=== PATIENT | male | born 1965 | race Caucasian/White ===

== ENCOUNTER 2019-02-11 02:10 | Emergency (ER) | payer BC, OTHER ==
[2019-02-11] MEDS ORDERED: Thiamine 100 MG in Sodium Chloride 0.9% 100 ML IV ONE (03:43)
--- NOTE | 2019-02-11 03:45 | EDM.PDOC ---
ED HPI GENERAL MEDICAL PROBLEM - General Chief Complaint: Syncope Stated Complaint: UNABLE TO PEE Time Seen by Provider: 02/11/19 03:39 Source of Information: Reports: Patient History Limitations: Reports: No Limitations - History of Present Illness INITIAL COMMENTS - FREE TEXT/NARRATIVE: Patient had a near syncopal episode [employer] while attempting to urinate. He felt the urge to urinate but was unable, subsequently beared down and had a BM instead. He then felt sweaty and lightheaded and collapsed to the ground. He did not lose consciousness and denies injuries. Patient complains of low abdominal cramping but this has significantly improved since receiving NS en route. He denies chest pain or SOB. - Related Data Allergies Allergy/AdvReac Type Severity Reaction Status Date / Time No Known Allergies Allergy Verified 02/11/19 02:39 Home Meds: Home Meds Lisinopril/Hydrochlorothiazide [Lisinopril-Hctz 10-12.5 mg Tab] 1 each PO DAILY 02/11/19 [History] Past Medical History Cardiovascular History: Reports: Hypertension. Denies: CAD Social & Family History - Tobacco Use Smoking Status *Q: Never Smoker - Alcohol Use Alcohol Use History: Yes Days Per Week of Alcohol Use: 7 Number of Drinks Per Day: 12 Total Drinks Per Week: 84 Alcohol Use Frequency: Daily - Recreational Drug Use Recreational Drug Use: No ED ROS GENERAL - Review of Systems Review Of Systems: ROS reveals no pertinent complaints other than HPI. Respiratory: Reports: Cough GI/Abdominal: Reports: Abdominal Pain (low) Musculoskeletal: Reports: Back Pain (low) - Physical Exam Exam: See Below Exam Limited By: No Limitations General Appearance: Alert, WD/WN, No Apparent Distress Eye Exam: Bilateral Eye: EOMI, PERRL Nose: Normal Inspection Throat/Mouth: No Airway Compromise Head Exam: Atraumatic, Normocephalic Neck: Normal Inspection, Full Range of Motion Respiratory/Chest: No Respiratory Distress, Lungs Clear, Normal Breath Sounds Cardiovascular: Regular Rate, Rhythm, No Murmur GI/Abdominal: Normal Bowel Sounds, Soft, No Mass, Tender (mild suprapubic) Neuro Exam (Abbreviated): Alert, Normal Cognition, No Motor/Sensory Deficits Extremities: Normal Range of Motion Psychiatric: Normal Affect, Normal Mood Skin Exam: Warm, Dry, Intact, Normal Color, No Rash EKG INTERPRETATION EKG Date: 02/11/19 Time: 02:24 Rhythm: NSR Rate (Beats/Min): 90 Ward: Normal P-Wave: Present QRS: RBBB ST-T: Normal QT: Normal Comparison: NA - No Prior EKG EKG Interpretation Comments: occasional PVC Course - Vital Signs Last Recorded V/S: Last Vital Signs Temp 36.7 C 02/11/19 02:10 Pulse 91 02/11/19 02:10 Resp 18 02/11/19 02:10 BP 128/75 02/11/19 02:10 Pulse Ox 95 02/11/19 02:10 - Orders/Labs/Meds Orders: Active Orders 24 hr Category Date Time Status EKG Documentation Completion [RC] ASDIRECTED Care 02/11/19 03:00 Active C-Spine [Cervical Spine wo Cont] [CT] Stat Exams 02/11/19 02:35 Taken CTA Abd Pelv w Cont [CT] Stat Exams 02/11/19 04:00 Taken Head wo Cont [CT] Stat Exams 02/11/19 02:35 Taken EKG 12 Lead [EK] Routine Ther 02/11/19 03:00 Ordered Labs: Laboratory Tests 02/11/19 02/11/19 02/11/19 Range/Units 02:45 02:45 02:45 WBC 7.5 (4.5-12.0) X10-3/uL RBC 4.56 (4.30-5.75) x10(6)uL Hgb 14.5 (13.5-17.8) g/dL Hct 42.4 (30.0-51.3) % MCV 93.0 (80-96) fL MCH 31.8 (27.7-33.6) pg MCHC 34.3 (32.2-35.4) g/dL RDW 12.6 (11.5-15.5) % Plt Count 207 (125-369) X10(3)uL MPV 9.3 (7.4-10.4) fL Neut % (Auto) 74.6 (46-82) % Lymph % (Auto) 14.2 (13-37) % [place] % (Auto) 8.6 (4-12) % Eos % (Auto) 2 (1.0-5.0) % Baso % (Auto) 1 (0-2) % Neut # (Auto) 5.6 (1.6-8.3) # Lymph # (Auto) 1.1 (0.6-5.0) # Bradley # (Auto) 0.6 (0.0-1.3) # Eos # (Auto) 0.2 (0.0-0.8) # Baso # (Auto) 0.0 (0.0-0.2) # Sodium 140 (135-145) mmol/L Potassium 3.3 L (3.5-5.3) mmol/L Chloride 101 (100-110) mmol/L Carbon Dioxide 26 (21-32) mmol/L BUN 15 (7-18) mg/dL Creatinine 1.3 (0.70-1.30) mg/dL Est Cr Clr Drug Dosing 64.20 mL/min Estimated GFR (MDRD) 57 L (>60) BUN/Creatinine Ratio 11.5 (9-20) Glucose 112 (80-116) mg/dL Calcium 8.5 L (8.6-10.2) mg/dL Magnesium 1.8 (1.8-2.5) mg/dL Total Bilirubin 0.7 (0.1-1.3) mg/dL AST 23 (5-25) IU/L ALT 36 (12-36) U/L Alkaline Phosphatase 64 (56-112) IU/L Troponin I (<0.017-0.056) ng/mL Total Protein 6.9 (6.0-8.0) g/dL Albumin 3.5 (3.5-5.2) g/dL Globulin 3.4 g/dL Albumin/Globulin Ratio 1.0 Urine Color (YELLOW) Urine Appearance (CLEAR) Urine pH (5.0-6.5) Ur Specific [place] (1.010-1.025) Urine Protein (NEGATIVE) mg/dL Urine Glucose (UA) (NORMAL) mg/dL Urine Ketones (NEGATIVE) mg/dL Urine Occult Blood (NEGATIVE) Urine Nitrite (NEGATIVE) Urine Bilirubin (NEGATIVE) Urine Urobilinogen (NEGATIVE) mg/dL Ur Leukocyte Esterase (NEGATIVE) Ethyl Alcohol 0.10 H (<0.03) % 02/11/19 02/11/19 Range/Units 02:45 03:37 WBC (4.5-12.0) X10-3/uL RBC (4.30-5.75) x10(6)uL Hgb (13.5-17.8) g/dL Hct (30.0-51.3) % MCV (80-96) fL MCH (27.7-33.6) pg MCHC (32.2-35.4) g/dL RDW (11.5-15.5) % Plt Count (125-369) X10(3)uL MPV (7.4-10.4) fL Neut % (Auto) (46-82) % Lymph % (Auto) (13-37) % Bradley % (Auto) (4-12) % Eos % (Auto) (1.0-5.0) % Baso % (Auto) (0-2) % Neut # (Auto) (1.6-8.3) # Lymph # (Auto) (0.6-5.0) # Bradley # (Auto) (0.0-1.3) # Eos # (Auto) (0.0-0.8) # Baso # (Auto) (0.0-0.2) # Sodium (135-145) mmol/L Potassium (3.5-5.3) mmol/L Chloride (100-110) mmol/L Carbon Dioxide (21-32) mmol/L BUN (7-18) mg/dL Creatinine (0.70-1.30) mg/dL Est Cr Clr Drug Dosing mL/min Estimated GFR (MDRD) (>60) BUN/Creatinine Ratio (9-20) Glucose (80-116) mg/dL Calcium (8.6-10.2) mg/dL Magnesium (1.8-2.5) mg/dL Total Bilirubin (0.1-1.3) mg/dL AST (5-25) IU/L ALT (12-36) U/L Alkaline Phosphatase (56-112) IU/L Troponin I < 0.017 L (<0.017-0.056) ng/mL Total Protein (6.0-8.0) g/dL Albumin (3.5-5.2) g/dL Globulin g/dL Albumin/Globulin Ratio Urine Color Yellow (YELLOW) Urine Appearance Clear (CLEAR) Urine pH 6.0 (5.0-6.5) Ur Specific [place] 1.010 (1.010-1.025) Urine Protein Negative (NEGATIVE) mg/dL Urine Glucose (UA) Normal (NORMAL) mg/dL Urine Ketones Negative (NEGATIVE) mg/dL Urine Occult Blood Negative (NEGATIVE) Urine Nitrite Negative (NEGATIVE) Urine Bilirubin Negative (NEGATIVE) Urine Urobilinogen Normal (NEGATIVE) mg/dL Ur Leukocyte Esterase Negative (NEGATIVE) Ethyl Alcohol (<0.03) % Meds: Medications Discontinued Medications Generic Name Dose Route Start Last Admin Trade Name Freq PRN Reason Stop Dose Admin Thiamine HCl 100 mg/ Sodium 101 mls @ 202 mls/hr 02/11/19 03:43 02/11/19 03: 46 Chloride IV 02/11/19 03:44 202 mls/hr ONETIME ONE Administration Iopamidol 150 ml 02/11/19 04:14 02/11/19 04:26 Isovue-370 (76%) IV 02/11/19 04:15 127 ml ONETIME ONE Administration Potassium Chloride 40 meq 02/11/19 03:49 02/11/19 03:54 Klor-Con M20 PO 02/11/19 03:50 40 meq ONETIME ONE Administration - Radiology Interpretation Free Text/Narrative:: CT Head: No acute process. CT C-spine: No osseous injury. CTA Abdomen: Aorta is unremarkable. Mild-moderate diffuse bladder wall thickening is noted, may be due to chronic bladder outlet obstruction, uti or cystitis. - Re-Assessments/Exams Free Text/Narrative Re-Assessment/Exam: 02/11/19 03:54 Patient received a total of 1L NS. Ambulated to the bathroom w/o assistance. Departure - Departure Time of Disposition: 04:58 Disposition: Home, Self-Care 01 Condition: Good Clinical Impression: Near syncope Alcohol intoxication Qualifiers: Complication of substance-induced condition: uncomplicated Qualified Code(s): F10.920 - Alcohol use, unspecified with intoxication, uncomplicated - Discharge Information *PRESCRIPTION DRUG MONITORING PROGRAM REVIEWED*: No *COPY OF PRESCRIPTION DRUG MONITORING REPORT IN PATIENT RAYMUNDO: Not Applicable Instructions: Near-Syncope, Alcohol Intoxication, [id number], Hypokalemia Referrals: Sandrita Espinoza NP [Ordering Only Provider] - 2 Days Forms: ED Department Discharge Additional Instructions: Follow up with your primary physician in 2-3 days. Will need Urology referral. Decrease alcohol consumption. Take a multivitamin daily. Increase intake of potassium containing foods. - My Orders Last 24 Hours: My Active Orders 02/11/19 02:35 C-Spine [Cervical Spine wo Cont] [CT] Stat Head wo Cont [CT] Stat 02/11/19 03:00 EKG Documentation Completion [RC] ASDIRECTED EKG 12 Lead [EK] Routine 02/11/19 04:00 CTA Abd Pelv w Cont [CT] Stat - Assessment/Plan Last 24 Hours: My Active Orders 02/11/19 02:35 C-Spine [Cervical Spine wo Cont] [CT] Stat Head wo Cont [CT] Stat 02/11/19 03:00 EKG Documentation Completion [RC] ASDIRECTED EKG 12 Lead [EK] Routine 02/11/19 04:00 CTA Abd Pelv w Cont [CT] Stat
[2019-02-11] MEDS ORDERED: Potassium Chloride 20 MEQ Tab.ER PO ONE (03:49)
[2019-02-11] MEDS ORDERED: Iopamidol 755 MG/ML 150 ML Bottle IV ONE (04:14)
== END 2019-02-11 05:05 | disposition home or self-care (01) ==
LOC: FB.ED 02:10
DX: R55 Syncope and collapse (principal); F10.120 Alcohol abuse with intoxication, uncomplicated; Y90.5 Blood alcohol level of 100-119 mg/100 ml; I10 Essential (primary) hypertension; Z79.899 Other long term (current) drug therapy
CPT/HCPCS: 36415; 70450; 72125; 74174; 80053; 81003; 83735; 84484; 85025; 93005; 96365; 99284; A9270; G0480; J3411; J7030; Q9967